=== PATIENT | female | born 1955 | race Caucasian/White ===

== ENCOUNTER 2021-05-26 07:39 | Day surgery (SDC) | payer MEDICARE, MEDICAID ==
[2021-05-19 10:53] LABS: BASOPHILS % (AUTO) 0.8 % (0-1); EOSINOPHILS # (AUTO) 0.1 X10'3 (0-0.9); EOSINOPHILS % (AUTO) 1.9 % (0-6); LYMPHOCYTES # (AUTO) 1.3 X10'3 (1.1-4.8); MEAN CORPUSCULAR HEMOGLOBIN 34.8 PG (27.0-31.0); MEAN CORPUSCULAR HGB CONC 33.8 g/dL (33.0-36.5); MEAN CORPUSCULAR VOLUME 102.8 FL (78-98); MEAN PLATELET VOLUME 8.4 FL (7.4-10.4); MONOCYTES # (AUTO) 0.6 X10'3 (0-0.9); MONOCYTES % (AUTO) 10.1 % (2-12); NEUTROPHILS # (AUTO) 3.8 X10'3 (1.8-7.7); NEUTROPHILS % (AUTO) 65.2 % (42-75); PRE OP HEMATOCRIT 37.9 % (35.0-45.0); PRE OP HEMOGLOBIN 12.8 g/dL (12.0-16.0); PRE OP PLATELET COUNT 300 X10'3 (140-440); RED BLOOD COUNT 3.68 X10'6 (4.20-5.60); RED CELL DISTRIBUTION WIDTH 14.1 % (11.5-14.5)
[2021-05-19 11:01] LABS: PARTIAL THROMBOPLASTIN TIME 24 SECONDS (22-32)
[2021-05-19 11:03] LABS: ALBUMIN 3.6 G/DL (3.4-5.0); ALBUMIN/GLOBULIN RATIO 1.2 (1.1-1.5); ALKALINE PHOSPHATASE 67 IU/L (46-116); BLOOD UREA NITROGEN 10 MG/DL (7-18); CALCIUM 8.7 MG/DL (8.5-10.1); CHLORIDE 108 MMOL/L (99-107); CREATININE 0.77 MG/DL (0.40-0.90); PRE OP ALT 26 U/L (30-65); PRE OP ANION GAP 10 (8-16); PRE OP AST 17 U/L (10-37); PRE OP BILIRUB, TOTAL 0.3 MG/DL (0.0-1.0); PRE OP GLUCOSE 83 MG/DL (70-104); PRE OP POTASSIUM 3.8 MMOL/L (3.4-5.1); PRE OP SODIUM 142 MMOL/L (135-145); TOTAL CARBON DIOXIDE 23.9 MMOL/L (24-32); TOTAL PROTEIN 6.6 G/DL (6.4-8.2); eGFR 75 ML/MIN
[2021-05-19 12:38] LABS: PLATELET FUNCTION (ADP) 92 SECONDS (63-104)
[2021-05-26] VITALS (13 sets, daily range): BP systolic 136–188; BP diastolic 68–97
[~2021-05-26] VITALS: Ht 170.2 cm; Wt 67.5 kg
[~2021-05-26 07:39] MED LIST: ATOR20TA66 PO; BIOT1CAP3 PO; BUPR-74 PO; CALC-627 PO; CYAN500T46 PO; DOCUMENT DATE & TIME OF BETA-BLOCKER PO ONE; ESCI20TA39 PO; HYDR-3972 PO; IBUP-1986 PO; LOSA100T57 PO; METO50TA16 PO; OMEP-50 PO; SUMA100T16 PO; VALA100031 PO; ZOLP5TAB8 PO; albuterol 2.5 MG/3 ML nebule NEB ONE; diazepam 5mg tablet PO ONE; famotidine 20mg tablet PO ONE; oxymetazoline 15 ML nasal spray NS SCH; ringers solution, lacted 1,000 ML IV SCH
[2021-05-26] MEDS ORDERED: LIDOCAINE 1%/EPI 1:100,000 inj. 10 ML multi-dose vial ONE ×2 (09:31→10:34)
[2021-05-26] MEDS ORDERED: cocaine 4% topical solution 4ml bottle ONE (09:31)
[2021-05-26] MEDS ORDERED: mupirocin 2% ointment 22GM ONE (09:31)
[2021-05-26] MEDS ORDERED: oxymetazoline 15 ML nasal spray NS ONE (09:32)
[2021-05-26] MEDS ORDERED: fentaNYL/PF 50MCG/1 ML 2ML syringe ONE ×2 (10:03→11:16)
[2021-05-26] MEDS ORDERED: midazolam 1 mg/ML 2ml injection ONE (10:04)
[2021-05-26] MEDS ORDERED: morphine 2 MG/ML inj. syringe IV PRN (11:00)
[2021-05-26] MEDS ORDERED: morphine 4 MG/ML inj SYRINge IV PRN (11:00)
[2021-05-26] MEDS ORDERED: ondansetron/PF 4mg/2ml inj IV PRN (11:00)
[2021-05-26] MEDS ORDERED: hydrALAZINE 20mg/ml inj. IV PRN (11:00)
[2021-05-26] MEDS ORDERED: ringers solution, lacted 1,000 ML IV SCH (11:00)
[2021-05-26] MEDS ORDERED: meperidine/PF 25mg/ml syringe IV PRN ×2 (11:00)
[2021-05-26] MEDS ORDERED: propofol inj 20 ML IV ONE (11:17)
[2021-05-26] MEDS ORDERED: glycopyrrolate 0.2mg/ml inj ONE (11:17)
[2021-05-26] MEDS ORDERED: dexamethasone sod phosphate 4mg/ml inj. ONE (11:17)
[2021-05-26] MEDS ORDERED: ondansetron/PF 4mg/2ml inj ONE ×2 (11:17→11:45)
[2021-05-26] MEDS ORDERED: LIDOcaine 2% (20mg/ml) 5ml vial ONE (11:17)
--- NOTE | 2021-05-26 11:46 | NUR ---
Received from OR via , accompanied by Anesthesiologist DR DALY and report given by Anesthesiolgist. PT PRESENTS WITH 20G RIGHT FOREARM. NASAL DRESSING DRY AND INTACT, VSS. Addendum: 05/26/21 at 1205 by Bess Castrejon RN, RN Amended: Links added.
[2021-05-26] MEDS ORDERED: labetalol 20mg/4ml (5mg/ml) syringe IV ONE (11:52)
[2021-05-26] MEDS ORDERED: acetaminophen 1,000mg/100ml IV 100 ML IV ONE (11:55)
[2021-05-26] MEDS: meperidine/PF 25mg/ml syringe IV PRN ×2 (12:06→12:30)
[2021-05-26] MEDS ORDERED: salt irrigation nasal spray 45 ML SPRAY NS PRN (12:35)
[2021-05-26] MEDS ORDERED: mupirocin 2% nasal ointment 1gm UD NS SCH (13:00)
--- NOTE | 2021-05-26 13:26 | NUR ---
DISCHARGE CRITERIA MET, DISCHARGE INSTRUCTIONS GIVEN, DEMONSTRATES VERBAL UNDERSTANDING. DISCHARGED HOME IN GOOD CONDITION. Addendum: 05/26/21 at 1349 by Bess Castrejon RN, RN Amended: Links added.
[2021-05-26] MEDS ORDERED: oxymetazoline 15 ML nasal spray NS SCH (20:00)
== END 2021-05-26 13:26 | disposition home or self-care (01) ==
LOC: PAS 07:39
PROVIDERS: ATTEND Otolaryngology
DX: J34.2 Deviated nasal septum (principal); J34.3 Hypertrophy of nasal turbinates; J32.8 Other chronic sinusitis; G43.909 Migraine, unspecified, not intractable, without status migrainosus; K21.9 Gastro-esophageal reflux disease without esophagitis; M19.90 Unspecified osteoarthritis, unspecified site; I10 Essential (primary) hypertension; F32.9 Major depressive disorder, single episode, unspecified; G89.29 Other chronic pain; Z20.822 Contact with and (suspected) exposure to COVID-19; Z79.01 Long term (current) use of anticoagulants; Z79.899 Other long term (current) drug therapy; Z87.891 Personal history of nicotine dependence; Z72.89 Other problems related to lifestyle
CPT/HCPCS: 30140; 30520; 31254; 31267; 36415; 61782; 80053; 82948; 85025; 85576; 85610; 85730; 87070; 87075; 87102; 87186; 87635; 93005; A6402; C9250; C9803; J0131; J0360; J1100; J2175; J2250; J2405; J2704; J3010; J3490; J7030; J7040; J7120; U0003; U0005; Z7506; Z7508; Z7512; 87077; A4618; A7000

== ENCOUNTER 2024-03-29 07:48 | Outpatient (CLI) | payer MEDICARE ==
[~2024-03-29 07:48] MED LIST changes: -DOCUMENT DATE & TIME OF BETA-BLOCKER PO ONE; -LOSA100T57 PO; +LOSA100T58 PO; -OMEP-50 PO; +OMEP20CA16 PO; -albuterol 2.5 MG/3 ML nebule NEB ONE; -diazepam 5mg tablet PO ONE; -famotidine 20mg tablet PO ONE; -oxymetazoline 15 ML nasal spray NS SCH; -ringers solution, lacted 1,000 ML IV SCH
[2024-03-29] MEDS ORDERED: iohexol 350MG/ML 100ml bottle IV ONE (08:08)
[2024-03-29] MEDS ORDERED: iohexol 350 MG/ML 50ML vial IV ONE (08:21)
== END 2024-03-29 23:59 | disposition home or self-care (01) ==
LOC: RAD 07:48
PROVIDERS: ATTEND Internal Medicine Interventional Cardiology
DX: I70.213 Atherosclerosis of native arteries of extremities with intermittent claudication, bilateral legs (principal); Z90.6 Acquired absence of other parts of urinary tract
CPT/HCPCS: 75635; Q9967